=== PATIENT | female | born 1940 | race Caucasian/White ===

== ENCOUNTER 2016-12-23 21:51 | Emergency (ER) | payer OTHER ==
--- NOTE | 2016-12-23 22:18 | CPEKG ---
Heart Rate: 74 RR Interval: 811 P-R Interval: 192 QRSD Interval: 80 QT Interval: 376 QTC Interval: 418 P [place]: 38 QRS [place]: -13 T Wave [place]: 16 EKG Severity - ABNORMAL ECG - EKG Impression: SINUS RHYTHM Electronically Signed By: Kristin Krueger 24-Dec-2016 06:42:41
[2016-12-23 22:34] LABS: % IMMATURE GRANULYOCYTES 0.3 % (0.0-1.1); ABSOLUTE IMMATURE GRANULOCYTES 0.02 10^3/uL (0.00-0.10); ADD DIFF? NO; ADD MORPH? NO; ADD SCAN? NO; ATYPICAL LYMPHOCYTE FLAG 0 (0-99); FRAGMENT RBC FLAG 0 (0-99); HEMATOCRIT 33.5 % (38.0-47.0); HEMOGLOBIN 11.4 g/dL (12.6-16.3); LEFT SHIFT FLG 0 (0-99); LIPEMIA HEMOLYSIS FLAG 90 (0-99); MEAN CELL HEMOGLOBIN 34.1 pg (27.9-34.1); MEAN CELL VOLUME 100.3 fL (81.5-99.8); MEAN PLATELET VOLUME 10.1 fL (8.7-11.7); PLATELET CLUMPS FLAG 0 (0-99); PLATELET COUNT 177 10^3/uL (150-400); RED BLOOD CELL COUNT 3.34 10^6/uL (4.18-5.33); RED CELL DISTRIBUTION WIDTH 12.5 % (11.5-15.2)
--- NOTE | 2016-12-23 22:36 | EDPHY ---
H & P Stated Complaint: FEVER/DIZZY Time Seen by Provider: 12/23/16 22:15 HPI/ROS: HPI The patient presents with fever which began tonight with a T-max of 100.2. The patient resides at [facility] and she developed a stomach ache around dinner time. She did not feel like eating anything and went to her room. She felt slightly dizzy which she describes as lightheadedness. Her temperature was checked and was 100.2. Paramedics came to the facility and examined her and she was deemed okay to go by private vehicle to the emergency room. Patient says that she has had a mild persistent cough over the last week or so. She has had mild rhinorrhea with this. She also reports some lower abdominal pains which have been present for the last 1 month.. REVIEW OF SYSTEMS Constitutional: No fever, no chills. Eyes: No discharge. ENT: No sore throat. Cardiovascular: No chest pain, no palpitations. Respiratory: No cough, no shortness of breath. Gastrointestinal: No abdominal pain, no vomiting. Genitourinary: No hematuria. Musculoskeletal: No back pain. Skin: No rashes. Neurological: No headache. PMHx: COPD, hypertension, chronic kidney disease, history of dementia, history of TIA Soc Hx: Lives at [place] in [place] PHYSICAL General Appearance: Alert, no distress Eyes: Pupils equal and round no pallor or injection ENT, Mouth: Mucous membranes moist Respiratory: There are no retractions, lungs are clear to auscultation Cardiovascular: Regular rate and rhythm Gastrointestinal: Abdomen is soft and with mild suprapubic tenderness, bowel sounds normal Neurological: A&O, moves all extremities Skin: Warm and dry, no rashes Musculoskeletal: Neck is supple non tender Extremities: symmetrical, full range of motion Psychiatric: Patient is oriented, there is no agitation Source: Patient, Family - Personal History Current Tetanus/Diphtheria Vaccine: Yes Current Tetanus Diphtheria and Acellular Pertussis (TDAP): Yes - Medical/Surgical History Hx Asthma: Yes Hx Chronic Respiratory Disease: Yes Hx Diabetes: No Hx Cardiac Disease: No Hx Renal Disease: No Hx Cirrhosis: No Hx Alcoholism: No Hx HIV/AIDS: No Hx Splenectomy or Spleen Trauma: No Other PMH: HTN, Hyperlipidemia, TIA, chronic kidney disease, hypothyroidism, hysterectomy - Social History Smoking Status: Former smoker Constitutional: Initial Vital Signs Temperature (C) 37.6 C 12/23/16 22:07 Heart Rate 80 12/23/16 22:07 Respiratory Rate 14 12/23/16 22:07 Blood Pressure 172/78 H 12/23/16 22:07 O2 Sat (%) 94 12/23/16 22:07 O2 Delivery Mode Nasal Cannula O2 (L/minute) 2 Allergies/Adverse Reactions: No Known Allergies Allergy (Verified 12/23/16 22:06) Home Medications: Medication Instructions Recorded Benazepril HCl [Lotensin (*)] 10 mg PO DAILY 05/04/14 Clopidogrel Bisulfate [Plavix (*)] 75 mg PO DAILY 05/04/14 Ibuprofen [Motrin (*)] 400 mg PO DAILY PRN 05/04/14 Levothyroxine [Synthroid 25 mcg 25 mcg PO DAILY 05/04/14 (*)] Lovastatin 20 mg PO DAILY 05/04/14 guaiFENesin/DEXTROMETHORPHAN 10 ml PO Q4 PRN #200 ml 05/06/14 [Robitussin Dm Oral Liquid (*)] Citalopram Hydrobromide [celeXA 10 10 mg PO DAILY 02/22/15 MG] Albuterol [Proventil Inhaler HFA 1 puffs IH Q4H PRN 05/05/15 (*)] Ipratropium/Albuterol [Combivent 1 inh IH DAILY 05/05/15 Respimat Inhal [place](*)] Zolpidem Tartrate [Ambien 5MG (*)] 5 mg PO HS PRN 05/05/15 clonazePAM [Klonopin (*)] 0.25 - 0.5 mg PO HS PRN 05/05/15 Albuterol [Proventil Inhaler HFA 2 puffs IH Q4 PRN #0 mdi 05/09/15 (*)] Ipratropium/Albuterol [Duoneb (*)] 3 ml IH QID #0 deyvial 05/09/15 levOFLOXACIN [levAQUIN (*)] 750 mg PO Q2D@1000 #0 tab 05/09/15 predniSONE 20 mg PO DAILY #30 tablet 05/09/15 Medical Decision Making - Diagnostics EKG Interpretation: EKG: Complete interpretation has been separately recorded in the [email or web address] archive. Summary impression: Normal sinus rhythm Imaging: Chest x-ray two views shows no infiltrate, reviewed by me and interpreted by Dr. Walton of Radiology. ED Course/Re-evaluation: The patient was given a L of normal saline and Tylenol in the emergency room. She was afebrile throughout her stay here. Her vital signs were normal except for slightly elevated blood pressure that improved with time. Labs were checked including lactate, CBC, UA, influenza swab and were all unremarkable. Chest x-ray showed no signs of pneumonia. I have reexamined her abdomen is completely benign. She feels well without any complaints. She was able to walk throughout the department without any difficulty. I have offered her admission for observation given that there is some diagnostic uncertainty to the cause of her fever. However, she would like to go home and I feel this is reasonable. I have instructed her to monitor her symptoms and return if she is worse in any way. She is in agreement with this plan. I have discussed this with her daughter and son-in-law at the bedside. Differential Diagnosis: This is a 76-year-old female with multiple medical problems including COPD, hypertension, chronic kidney disease who presents from her assisted living facility with several hours of low-grade fever, stomachache, anorexia. On review of systems she has had a cough for the last 1 week and also has had lower abdominal pains for the last 1 month. On exam she has a temperature of 37.6, she is not tachycardic, her blood pressure is slightly elevated. Differential diagnosis includes pneumonia, influenza, urinary tract infection. She is not exhibiting any signs or symptoms of sepsis at this point. Plan for basic labs including flu swab, chest x-ray. I will give her Tylenol and IV fluids for her fever. - Data Points Laboratory Results: Laboratory Results 12/23/16 20:25 12/23/16 20:25 12/23/16 12/23/16 12/23/16 23:23 22:45 20:25 WBC RBC Hgb Hct MCV MCH MCHC RDW Plt Count MPV Neut % (Auto) Lymph % (Auto) [place] % (Auto) Eos % (Auto) Baso % (Auto) Nucleat RBC Rel Count Absolute Neuts (auto) Absolute Lymphs (auto) Absolute Monos (auto) Absolute Eos (auto) Absolute Basos (auto) Absolute Nucleated RBC Immature Gran % Immature Gran # VBG Lactic Acid Sodium 136 mEq/L mEq/L (134-144) Potassium 4.1 mEq/L mEq/L (3.5-5.2) Chloride 104 mEq/L mEq/L (97-110) Carbon Dioxide 21 mEq/l L mEq/l (22-31) Anion Gap 11 mEq/L mEq/L (8-16) BUN 17 mg/dL mg/dL (7-23) Creatinine 1.2 mg/dL H mg/dL (0.6-1.0) Estimated GFR 44 Glucose 115 mg/dL H mg/dL (70-100) Calcium 9.4 mg/dL mg/dL (8.5-10.4) Total Bilirubin 0.8 mg/dL mg/dL (0.1-1.4) Conjugated Bilirubin 0.3 mg/dL mg/dL (0.0-0.5) Unconjugated Bilirubin 0.5 mg/dL mg/dL (0.0-1.1) AST 30 IU/L IU/L (14-46) ALT 40 IU/L IU/L (9-52) Alkaline Phosphatase 89 IU/L IU/L (38-126) Total Protein 6.9 g/dL g/dL (6.3-8.2) Albumin 4.3 g/dL g/dL (3.5-5.0) Urine Color PALE YELLOW Urine Appearance CLEAR Urine pH 5.0 (5.0-7.5) Ur Specific [place] 1.008 (1.002-1.030) Urine Protein NEGATIVE (NEGATIVE) Urine Ketones NEGATIVE (NEGATIVE) Urine Blood NEGATIVE (NEGATIVE) Urine Nitrate NEGATIVE (NEGATIVE) Urine Bilirubin NEGATIVE (NEGATIVE) Urine Urobilinogen NEGATIVE EU EU (0.2-1.0) Ur Leukocyte Esterase NEGATIVE (NEGATIVE) Ur Culture Indicated? NOT INDICATED (NI) Urine Glucose NEGATIVE (NEGATIVE) Influenza Typ A,B (DFA) NEGATIVE FOR FLU (NEGATIVE) 12/23/16 12/23/16 20:25 20:25 WBC 7.59 10^3/uL 10^3/uL (3.80-9.50) RBC 3.34 10^6/uL L 10^6/uL (4.18-5.33) Hgb 11.4 g/dL L g/dL (12.6-16.3) Hct 33.5 % L % (38.0-47.0) MCV 100.3 fL H fL (81.5-99.8) MCH 34.1 pg pg (27.9-34.1) MCHC 34.0 g/dL g/dL (32.4-36.7) RDW 12.5 % % (11.5-15.2) Plt Count 177 10^3/uL 10^3/uL (150-400) MPV 10.1 fL fL (8.7-11.7) Neut % (Auto) 81.8 % H % (39.3-74.2) Lymph % (Auto) 7.1 % L % (15.0-45.0) [place] % (Auto) 8.0 % % (4.5-13.0) Eos % (Auto) 2.5 % % (0.6-7.6) Baso % (Auto) 0.3 % % (0.3-1.7) Nucleat RBC Rel Count 0.0 % % (0.0-0.2) Absolute Neuts (auto) 6.21 10^3/uL 10^3/uL (1.70-6.50) Absolute Lymphs (auto) 0.54 10^3/uL L 10^3/uL (1.00-3.00) Absolute Monos (auto) 0.61 10^3/uL 10^3/uL (0.30-0.80) Absolute Eos (auto) 0.19 10^3/uL 10^3/uL (0.03-0.40) Absolute Basos (auto) 0.02 10^3/uL 10^3/uL (0.02-0.10) Absolute Nucleated RBC 0.00 10^3/uL 10^3/uL (0-0.01) Immature Gran % 0.3 % % (0.0-1.1) Immature Gran # 0.02 10^3/uL 10^3/uL (0.00-0.10) VBG Lactic Acid 1.7 mmol/L mmol/L (0.7-2.1) Sodium Potassium Chloride Carbon Dioxide Anion Gap BUN Creatinine Estimated GFR Glucose Calcium Total Bilirubin Conjugated Bilirubin Unconjugated Bilirubin AST ALT Alkaline Phosphatase Total Protein Albumin Urine Color Urine Appearance Urine pH Ur Specific [place] Urine Protein Urine Ketones Urine Blood Urine Nitrate Urine Bilirubin Urine Urobilinogen Ur Leukocyte Esterase Ur Culture Indicated? Urine Glucose Influenza Typ A,B (DFA) Medications Given: Discontinued Medications Acetaminophen (Tylenol) 1,000 mg PO EDNOW ONE Stop: 12/23/16 22:33 Last Admin: 12/23/16 23:01 Dose: 1,000 mg Sodium Chloride (Ns) 1,000 mls @ 0 mls/hr IV ONCE ONE PRN Reason: Wide Open Stop: 12/23/16 22:33 Last Admin: 12/23/16 23:02 Dose: 1,000 mls Departure - Departure Disposition: Home, Routine, Self-Care Clinical Impression: Fever Condition: Good Instructions: Fever in Adults (ED) Additional Instructions: If you feel badly tomorrow, you should follow up with your regular doctor or come back to the emergency room for recheck. Please return immediately if you feel worse in any way. Referrals: Brendan Sagastume MD [Primary Care Provider] - As per Instructions
[2016-12-23 22:52] LABS: ALANINE AMINOTRANSFERASE 40 IU/L (9-52); ALBUMIN 4.3 g/dL (3.5-5.0); ALKALINE PHOSPHATASE 89 IU/L (38-126); ANION GAP 11 mEq/L (8-16); ASPARTATE AMINOTRANSFERASE 30 IU/L (14-46); BILIRUBIN,TOTAL 0.8 mg/dL (0.1-1.4); BILIRUBIN-CONJUGATED 0.3 mg/dL (0.0-0.5); BILIRUBIN-UNCONJUGATED 0.5 mg/dL (0.0-1.1); CALCIUM 9.4 mg/dL (8.5-10.4); CARBON DIOXIDE 21 mEq/l (22-31); CHLORIDE 104 mEq/L (97-110); CREATININE 1.2 mg/dL (0.6-1.0); GLOMERULAR FILTRATION RATE 44; GLUCOSE 115 mg/dL (70-100); POTASSIUM 4.1 mEq/L (3.5-5.2); SODIUM 136 mEq/L (134-144); TOTAL PROTEIN 6.9 g/dL (6.3-8.2)
[2016-12-23 22:59] LABS: COLOR PALE YELLOW; LEUKOCYTE ESTERASE,URINE NEGATIVE (NEGATIVE); NITRITE,URINE NEGATIVE (NEGATIVE)
[2016-12-23] MEDS: ACETAMINOPHEN 500 MG TAB PO ONE (23:01)
[2016-12-23] MEDS: NS 1,000 ML IV ONE (23:02)
[2016-12-24 00:02] VITALS: BP 149/63; PULSE 67; RESP 19; TEMP 99.1; O2SAT 94
== END 2016-12-24 00:25 | disposition home or self-care (01) ==
DX: R50.9 Fever, unspecified (principal); J44.9 Chronic obstructive pulmonary disease, unspecified; I12.9 Hypertensive chronic kidney disease with stage 1 through stage 4 chronic kidney disease, or unspecified chronic kidney disease; N18.9 Chronic kidney disease, unspecified; J45.909 Unspecified asthma, uncomplicated; Z86.73 Personal history of transient ischemic attack (TIA), and cerebral infarction without residual deficits; Z87.891 Personal history of nicotine dependence